=== PATIENT | female | born 2000 | race Two or more races ===

== ENCOUNTER 2021-05-22 13:25 | Observation (INO) | payer MEDICAID ==
[~2021-05-22] VITALS: Ht 165.1 cm; Wt 73.9 kg
[2021-05-22] MEDS ORDERED: CALC500T6 MT (13:41)
[2021-05-22] MEDS ORDERED: ONDANSETRON HCL 4MG/2ML INJ IV PRN (14:15)
[2021-05-22] MEDS ORDERED: PANTOPRAZOLE SODIUM 40 MG/VIAL IV NR (14:30)
[2021-05-22 14:58] LABS: CHLORIDE 104 mEq/L (98-107)
[2021-05-22] MEDS ORDERED: MVI, ADULT NO.1 10 ML in SODIUM CHLORIDE 0.9% 1,000 ML IV ONE ×2 (15:00)
[2021-06-10] MEDS ORDERED: PNV1TABL50 PO (07:01)
== END 2021-05-22 17:30 | disposition home or self-care (01) ==
LOC: 8 EST LDRP 13:25
PROVIDERS: ADMIT Obstetrics & Gynecology; ATTEND Obstetrics & Gynecology
DX: O21.2 Late vomiting of pregnancy (principal); O26.893 Other specified pregnancy related conditions, third trimester; R12 Heartburn; Z3A.37 37 weeks gestation of pregnancy
CPT/HCPCS: 36415; 59025; 80053; 96365; 96366; 96375; C9113; G0378; J2405; J3490; J7030; 99281

== ENCOUNTER 2021-05-28 07:56 | Observation (INO) | payer MEDICAID ==
[~2021-05-28] VITALS: Ht 167.6 cm; Wt 74.8 kg
[~2021-05-28 07:56] MED LIST: CALC500T6 MT
[2021-05-28] MEDS ORDERED: CITRIC ACID/SODIUM CITRATE SOLN 30ML UDC PO SCH (08:45)
== END 2021-05-28 11:35 | disposition home or self-care (01) ==
LOC: 8 EST LDRP 07:56
PROVIDERS: ADMIT Specialist; ATTEND Specialist
DX: Z34.93 Encounter for supervision of normal pregnancy, unspecified, third trimester (principal); Z3A.39 39 weeks gestation of pregnancy
CPT/HCPCS: 76805; 76818; 99281; G0378; 59025